=== PATIENT | male | born 2000 | race Caucasian/White ===

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

== ENCOUNTER 2018-08-02 22:11 | Emergency (ER) | payer OTHER ==
[~2018-08-02] VITALS: Ht 175.3 cm; Wt 96.2 kg
--- NOTE | 2018-08-02 22:31 | NUR ---
Patient ambulated with stable gait. A/Ox4. Patient came for c/o multiple body pains. Pain in bilateral knees, left flank, left knee. 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 Came in today due to increasing pain. Respiratory even and unlabored, no cough no sob. No cardiovascular distress noted, all pulses palpable. No GI distress noted.
--- NOTE | 2018-08-02 22:45 | NUR ---
ERMD at bedside for eval
[2018-08-02] MEDS ORDERED: NAPROXEN 500 MG TABLET PO ONE (23:00)
[2018-08-02] MEDS ORDERED: NAPROXEN 500 MG TABLET ONE (23:02)
--- NOTE | 2018-08-02 23:10 | NUR ---
Patient transported to CT in stable condition.
--- NOTE | 2018-08-02 23:29 | NUR ---
Patient back in room from CT.
--- NOTE | 2018-08-03 00:26 | NUR ---
Patient discharged to home in stable conditon. Written and verbal after care instructions given. Patient verbalizes understanding of instructions. Patient ambulated with stable gait.
[2018-08-03 00:28] VITALS: BP 143/78
== END 2018-08-03 00:30 | disposition home or self-care (01) ==
LOC: ER 22:11
DX: M22.42 Chondromalacia patellae, left knee (principal); M22.41 Chondromalacia patellae, right knee; M19.012 Primary osteoarthritis, left shoulder; R07.89 Other chest pain
CPT/HCPCS: 71250; 73030; 73700; A4663